=== PATIENT | female | born 1955 | race Caucasian/White ===

== ENCOUNTER 2019-04-08 09:34 | Day surgery (SDC) | payer BC ==
[2019-04-08] VITALS (12 sets, daily range): BP systolic 115–159; BP diastolic 60–113; PULSE 68–89; TEMP 97.9–98.3
[~2019-04-08] VITALS: Ht 165.2 cm; Wt 77.0 kg
[2019-04-08 10:03] LABS: HEMATOCRIT 43.5 % (37.0-47.0); HEMOGLOBIN 14.3 g/dl (12.5-16.0); MEAN CELL VOLUME 97 fl (80.0-100.0); MEAN CORPUSCULAR HEMOGLOBIN 32 pg (27.0-31.0); MEAN CORPUSCULAR HGB CONC 33 g/dl (33.0-37.0); MEAN PLATELET VOLUME 10.7 fl (7.4-10.4); PLATELET COUNT 262 K/mm3 (130-400); RED BLOOD COUNT 4.48 M/mm3 (4.10-5.30); REDCELL DISTRIBUTION WIDTH-CV 12.3 % (11.5-14.5)
[2019-04-08 10:09] LABS: INR 1.1 (0.8-3.0); PROTHROMBIN TIME 12.6 SECONDS (9.7-12.8)
[2019-04-08 10:58] LABS: CALCIUM 9.8 mg/dL (8.4-10.2); CREATININE, serum 0.82 (0.52-1.25); POTASSIUM 3.7 mmol/L (3.4-5.0)
[2019-04-08] MEDS ORDERED: ASPIRIN E.C. 8181 MG PO (11:00)
[2019-04-08] MEDS ORDERED: SYNTHROID0.05 MG/TA PO (11:01)
[2019-04-08] MEDS ORDERED: PLAVIX 75MG TAB75 MG PO (11:01)
[2019-04-08] MEDS ORDERED: PRINZIDE 12.5 M1 TAB PO (11:01)
[2019-04-08] MEDS ORDERED: TOPROL XL 25MG25 MG PO (11:02)
--- NOTE | 2019-04-08 12:03 | NUR ---
ALL MEDICATIONS GIVEN VORB WITH MD. SEE MERGE FOR ALL MEDICATION ADMIN TIMES. SEE MERGE FOR ALL RASS ASSESSMENTS DURING AND POST PROCEDURE. POSITIVE BARBEAU'S TEST IN THE RIGHT WRIST, RADIAL PULSE +2. NITRO PASTE APPLIED PRIOR TO PROCEDURE,REFER TO MAR.
--- NOTE | 2019-04-08 12:50 | NUR ---
Patient transported back to room 11 at this time. Patient hooked up to monitoring equipment. VS stable. Patient alert and oriented X3. Bárbara RN at bedside. Visualized TR band remains in place at this time 12 ml of air in the band. Cap refill < 3 seconds. No oozing or hematoma noted at this time. Discussed wrist restrictions with patient and spouse. Bed in locked and lowest position. Call light within reach.
--- NOTE | 2019-04-08 12:55 | NUR ---
Pt returned to EU 11 per bed s/p heart cath. Pt resting well, at bedside.
[2019-04-08] MEDS ORDERED: ALDACTONE 25MG25 M1 PO (13:24)
--- NOTE | 2019-04-08 16:40 | NUR ---
R radial compression band removed. R radial cath site remains soft, C/D/I. Site covered with bandaid and gauze and wrapped with coban. PIV removed with catheter intact. Pt has ambulated, voided and esperanza PO intake s n/v.
--- NOTE | 2019-04-08 17:35 | NUR ---
Pt discharged per w/c by nurse with .
== END 2019-04-08 17:51 | disposition home or self-care (01) ==
LOC: COL.CAR 09:34
PROVIDERS: Internal Medicine Cardiovascular Disease
DX: I42.8 Other cardiomyopathies (principal); I10 Essential (primary) hypertension; I08.1 Rheumatic disorders of both mitral and tricuspid valves; E07.9 Disorder of thyroid, unspecified; Z79.899 Other long term (current) drug therapy; Z79.82 Long term (current) use of aspirin; Z82.49 Family history of ischemic heart disease and other diseases of the circulatory system; Z83.3 Family history of diabetes mellitus
CPT/HCPCS: J1644; J2250; J3010; Q9967

== ENCOUNTER 2019-07-29 07:59 | Day surgery (SDC) | payer BC ==
[~2019-07-29] VITALS: Ht 165.2 cm; Wt 80.0 kg
[2019-07-29] VITALS (7 sets, daily range): BP systolic 109–139; BP diastolic 56–77; PULSE 65–77; TEMP 98–99.1
[~2019-07-29 07:59] MED LIST: ALDACTONE 25MG25 M1 PO; ASPIRIN E.C. 8181 MG PO; PLAVIX 75MG TAB75 MG PO; PRINZIDE 12.5 M1 TAB PO; SYNTHROID0.05 MG/TA PO; TOPROL XL 25MG25 MG PO
[2019-07-29] MEDS ORDERED: PRINZIDE 12.5 M1 TA1 PO (08:29)
[2019-07-29 09:12] LABS: HEMOGLOBIN 12.5 g/dl (12.5-16.0); MEAN CELL VOLUME 96 fl (80.0-100.0); MEAN CORPUSCULAR HEMOGLOBIN 32 pg (27.0-31.0); MEAN CORPUSCULAR HGB CONC 33 g/dl (33.0-37.0); MEAN PLATELET VOLUME 10.1 fl (7.4-10.4); PLATELET COUNT 266 K/mm3 (130-400); RED BLOOD COUNT 3.95 M/mm3 (4.10-5.30); REDCELL DISTRIBUTION WIDTH-CV 12.1 % (11.5-14.5)
[2019-07-29 09:20] LABS: CALCIUM 9.7 mg/dL (8.4-10.2); CREATININE, serum 0.99 (0.52-1.25); POTASSIUM 4.6 mmol/L (3.4-5.0)
[2019-07-29 09:22] LABS: INR 1.1 (0.8-3.0); PROTHROMBIN TIME 12.5 SECONDS (9.7-12.8)
--- NOTE | 2019-07-29 11:05 | NUR ---
SEE MAYKEL FOR MEDICATION ADMINISTRATION TIMES, INTRA AND POST SEDATION ASSESSMENT. SHARED DECISION MAKING TOOL AND NCD TOOL COMPLETE AND PRESENT IN CHART
--- NOTE | 2019-07-29 12:15 | NUR ---
patient arrived to room 319 from [facility] at this time, she is alert/oriented, vital signs stable, denies pain, left arm in immobilizer sling, present at bedside, will continue to monitor, denies needs
--- NOTE | 2019-07-29 21:00 | NUR ---
Initial shift assessment done- denies nausea at this time- states the sprite did help- requesting some ice cream,,Left arm in sling, left chest dressing dry and intact- ice applied at this time- will give some tylenol for some soreness at site. Tele on.
[2019-07-30 01:23] VITALS: BP 105/51; PULSE 65; TEMP 98.1
[2019-07-30 05:05] VITALS: BP 114/50; PULSE 66; TEMP 97.9
--- NOTE | 2019-07-30 05:43 | NUR ---
Quiet night- left chest dressing dry and intact- fresh ice to incision.
[2019-07-30 07:24] LABS: BASO % 0.4 % (0.0-2.0); EOS # 0.2 (0.0-0.7); EOS % 2.7 % (0-4.0); GRAN # 5.5 (1.4-6.5); GRAN % 65.6 % (42.2-75.2); HEMOGLOBIN 11.8 g/dl (12.5-16.0); LYMPH # 1.9 (1.2-3.4); LYMPH % 22.6 % (20.0-51.0); MEAN CELL VOLUME 97 fl (80.0-100.0); MEAN CORPUSCULAR HEMOGLOBIN 32 pg (27.0-31.0); MEAN CORPUSCULAR HGB CONC 33 g/dl (33.0-37.0); MEAN PLATELET VOLUME 10.6 fl (7.4-10.4); MONO # 0.7 (0.1-0.6); MONO % 8.6 % (1.7-9.3); PLATELET COUNT 230 K/mm3 (130-400); RED BLOOD COUNT 3.68 M/mm3 (4.10-5.30); REDCELL DISTRIBUTION WIDTH-CV 12.2 % (11.5-14.5)
[2019-07-30 07:26] VITALS: BP 124/45; PULSE 66; TEMP 98.6
[2019-07-30 07:27] LABS: HEMATOCRIT 35.6 % (37.0-47.0)
[2019-07-30 07:38] LABS: CALCIUM 9.4 mg/dL (8.4-10.2); CREATININE, serum 0.78 (0.52-1.25); POTASSIUM 4.3 mmol/L (3.4-5.0)
--- NOTE | 2019-07-30 09:21 | NUR ---
Initial visit; Patient thanked Integrity Manager for looking in on her and offering spiritual care.
--- NOTE | 2019-07-30 09:45 | NUR ---
Pt assessment completed and charted, morning medications administered per AUG. Pt is A&O, independent in room. Pt has LFA INT IV that flushes w/o complications. Pt has TAHIR ICD site, covered w/ gauze, no redness, some tenderness. Pt denies need for tylenol at this time. Pt discussed getting dose of tylenol PRN prior to discharge. Pt denies pain unless she moves it around too much. Currently, Lt arm in sling, ice pack on site. Breathing is even and unlabored on room air, tele in place, VSS, no concerns noted. Dr. Lamb in to visit w/ patient at this time.
[2019-07-30] MEDS ORDERED: CEPHALEXIN500 M1 PO (11:19)
[2019-07-30 11:43] VITALS: BP 101/50; PULSE 77; TEMP 98.8
--- NOTE | 2019-07-30 13:45 | NUR ---
Pt discharged, discharge instructions discussed and reviewed w/ patient who verbalized understanding. All questions answered. No other concerns noted. LFA INT IV dc'd w/ catheter tip intact and no complications. Pt escorted out via WC by AUGUSTO Coelho.
== END 2019-07-30 13:45 | disposition home or self-care (01) ==
LOC: COL.CAR 07:59 → MEDICAL 12:19 → COL.CAR 07-30 13:45
PROVIDERS: Internal Medicine Cardiovascular Disease; Nurse Practitioner
DX: I42.0 Dilated cardiomyopathy (principal); R55 Syncope and collapse; I50.9 Heart failure, unspecified; I47.2 Ventricular tachycardia
CPT/HCPCS: OP; J0690; J2250; J3010; J7030